=== PATIENT | male | born 1950 | race Two or more races ===

== ENCOUNTER 2017-12-19 10:54 | Outpatient (CLI) | payer OTHER ==
[~2017-12-19 10:54] MED LIST: MOBIC15 MG PO
== END 2017-12-19 12:00 | disposition home or self-care (01) ==
LOC: NUCLEAR 10:54
DX: I87.2 Venous insufficiency (chronic) (peripheral) (principal); M25.461 Effusion, right knee; M25.462 Effusion, left knee; M25.561 Pain in right knee; M25.562 Pain in left knee

== ENCOUNTER 2021-07-23 13:48 | Inpatient (IN) | payer OTHER ==
[~2021-07-23] VITALS: Ht 172.7 cm; Wt 83.9 kg
[~2021-07-23 13:48] MED LIST changes: +LOTREL 5-20 MG1 CAP PO; +TENORMIN50 M1 PO
== END 2021-07-28 12:06 | disposition home or self-care (01) | DRG 378 ==
LOC: ER 13:48 → SEC-K 21:18 → SURG 21:32
PROVIDERS: ADMIT Internal Medicine; ATTEND Internal Medicine
PROC: 30233N1 Transfusion of Nonautologous Red Blood Cells into Peripheral Vein, Percutaneous Approach (ICD-10-PCS; principal; 2021-07-24)
PROC: 0DB78ZX Excision of Stomach, Pylorus, Via Natural or Artificial Opening Endoscopic, Diagnostic (ICD-10-PCS; 2021-07-26)
DX: K92.1 Melena (principal); D62 Acute posthemorrhagic anemia; I10 Essential (primary) hypertension; T39.395A Adverse effect of other nonsteroidal anti-inflammatory drugs [NSAID], initial encounter; K29.00 Acute gastritis without bleeding; K44.9 Diaphragmatic hernia without obstruction or gangrene

== ENCOUNTER 2021-08-02 11:09 | Emergency (ER) | payer OTHER ==
[~2021-08-02] VITALS: Ht 172.7 cm; Wt 81.6 kg
[2021-08-02] MEDS ORDERED: PEPCID AC20 MG (11:35)
[2021-08-02] MEDS ORDERED: AMOX1TAB5 (11:35)
[2021-08-02] MEDS ORDERED: PROTONIX40 MG (11:35)
[2021-08-02] MEDS ORDERED: LEVO-T75 MCG (11:35)
== END 2021-08-02 15:15 | disposition home or self-care (01) ==
LOC: ER 11:09
DX: R60.0 Localized edema (principal); M79.675 Pain in left toe(s)

== ENCOUNTER 2022-08-09 08:00 | Inpatient (IN) | payer OTHER ==
[~2022-08-09] VITALS: Ht 172.7 cm; Wt 83.9 kg
[~2022-08-09 08:00] MED LIST changes: +AMOX1TAB5; +LEVO-T75 MCG PO; +PEPCID AC20 MG; +PROTONIX40 MG
== END 2022-08-17 18:28 | DRG 470 ==
LOC: SURG 08-15 07:00 → O/R 08-15 07:38 → SURG 08-15 08:00
PROVIDERS: ADMIT Orthopaedic Surgery; ATTEND Orthopaedic Surgery
PROC: 0SRB0JZ Replacement of Left Hip Joint with Synthetic Substitute, Open Approach (ICD-10-PCS; principal; 2022-08-15 07:00)
DX: M16.12 Unilateral primary osteoarthritis, left hip (principal); D62 Acute posthemorrhagic anemia; M85.68 Other cyst of bone, other site

== ENCOUNTER 2023-05-15 04:27 | Emergency (ER) | payer OTHER ==
[~2023-05-15] VITALS: Ht 172.7 cm; Wt 81.6 kg
[2023-05-15] MEDS ORDERED: LASIX20 MG PO (04:48)
== END 2023-05-15 07:23 | disposition home or self-care (01) ==
LOC: ER 04:27
DX: J06.9 Acute upper respiratory infection, unspecified (principal); Z20.822 Contact with and (suspected) exposure to COVID-19

== ENCOUNTER 2023-12-23 08:34 | Emergency (ER) | payer OTHER ==
[~2023-12-23] VITALS: Ht 172.7 cm; Wt 85.7 kg
[~2023-12-23 08:34] MED LIST changes: +LASIX20 MG PO
[2023-12-23 09:48] LABS: HEMATOCRIT 35.9 % (39.0-48.0); MEAN CELL VOLUME 85.3 fL (80.0-100.00); MEAN CORPUSCULAR HEMOGLOBIN 28.5 pg (27.00-32.0); MEAN CORPUSCULAR HGB CONC 33.4 g/dl (32.0-36.0); PLATELET COUNT 343 K/uL (150-450); RED BLOOD COUNT 4.21 M/uL (4.00-6.00); RED CELL DISTRIBUTION WIDTH 16.3 % (11.5-14.5)
== END 2023-12-23 12:15 | disposition home or self-care (01) ==
LOC: ER 08:35
PROVIDERS: General Practice
DX: J06.9 Acute upper respiratory infection, unspecified (principal); R05.9 Cough, unspecified; Z20.822 Contact with and (suspected) exposure to COVID-19; I10 Essential (primary) hypertension

== ENCOUNTER 2024-03-31 08:20 | Outpatient (CLI) | payer OTHER | END 2024-03-31 08:26 | disposition home or self-care (01) | LOC: TOM 08:20 | PROVIDERS: ATTEND Internal Medicine Gastroenterology | DX: K56.600 Partial intestinal obstruction, unspecified as to cause (principal) ==

== ENCOUNTER 2024-05-08 13:00 | Outpatient (CLI) | payer OTHER | END 2024-05-08 14:00 | disposition home or self-care (01) | LOC: WOUND MED 13:00 | PROVIDERS: ATTEND Specialist | DX: L97.328 Non-pressure chronic ulcer of left ankle with other specified severity (principal) | CPT/HCPCS: 97602; A4927; A6219; A6223 ==

== ENCOUNTER → 2024-05-15 | Outpatient (CLI) | payer OTHER ==
[~2024-05-15] MED LIST changes: +LEVOXYL88 MCG; +OMEPRAZOLE MAGN20 MG
== END | disposition home or self-care (01) ==
LOC: WOUND MED 05-13 07:00
PROVIDERS: ATTEND Specialist
DX: L97.322 Non-pressure chronic ulcer of left ankle with fat layer exposed (principal)
CPT/HCPCS: 11042; A4927; A6219 ×2; A6223 ×2

== ENCOUNTER → 2024-05-19 | Outpatient (CLI) | payer OTHER | END | disposition home or self-care (01) | LOC: WOUND MED 08:00 | PROVIDERS: ATTEND Specialist | DX: L98.422 Non-pressure chronic ulcer of back with fat layer exposed (principal) | CPT/HCPCS: 97602; A4927; A6219; A6223 ==

== ENCOUNTER → 2024-05-22 | Outpatient (CLI) | payer OTHER | END | disposition home or self-care (01) | LOC: WOUND MED 08:45 | PROVIDERS: ATTEND Specialist | DX: L97.922 Non-pressure chronic ulcer of unspecified part of left lower leg with fat layer exposed (principal) | CPT/HCPCS: 11042; A4927; A6219; A6223 ==

== ENCOUNTER → 2024-05-26 | Outpatient (CLI) | payer OTHER | END | disposition home or self-care (01) | LOC: WOUND MED 12:50 → WOUND CARE 13:00 → EDSTATUS 13:00 | PROVIDERS: ATTEND Specialist | DX: L97.922 Non-pressure chronic ulcer of unspecified part of left lower leg with fat layer exposed (principal) | CPT/HCPCS: 97602; A4927; A6219; A6223 ==

== ENCOUNTER → 2024-05-29 | Outpatient (CLI) | payer OTHER | END | disposition home or self-care (01) | LOC: WOUND CARE 09:00 → EDSTATUS 09:00 → WOUND MED 09:03 | PROVIDERS: ATTEND Specialist | DX: L97.322 Non-pressure chronic ulcer of left ankle with fat layer exposed (principal) | CPT/HCPCS: 11042; A4927; A6219; A6223; A6251 ==

== ENCOUNTER → 2024-06-02 | Outpatient (CLI) | payer OTHER | END | disposition home or self-care (01) | LOC: WOUND MED 13:00 | PROVIDERS: ATTEND Specialist | DX: L97.322 Non-pressure chronic ulcer of left ankle with fat layer exposed (principal) | CPT/HCPCS: 97602; A4927; A6219; A6223; A6251 ==

== ENCOUNTER → 2024-06-05 | Outpatient (CLI) | payer OTHER | END | disposition home or self-care (01) | LOC: WOUND MED 08:30 | PROVIDERS: ATTEND Specialist | DX: L97.822 Non-pressure chronic ulcer of other part of left lower leg with fat layer exposed (principal) | CPT/HCPCS: 11042; A4927; A6219; A6223 ==

== ENCOUNTER 2024-06-09 13:17 | Outpatient (CLI) | payer OTHER ==
[~2024-06-09 13:17] MED LIST changes: -LEVOXYL88 MCG; -OMEPRAZOLE MAGN20 MG
== END 2024-06-09 14:00 | disposition home or self-care (01) ==
LOC: WOUND MED 13:17
PROVIDERS: ATTEND Specialist
DX: L97.322 Non-pressure chronic ulcer of left ankle with fat layer exposed (principal)
CPT/HCPCS: 97602; A4927; A6219; A6223

== ENCOUNTER 2024-06-11 09:15 | Inpatient (IN) | payer OTHER ==
[~2024-06-11] VITALS: Ht 172.7 cm; Wt 85.3 kg
[2024-06-11 12:34] VITALS: BP 133/68
[2024-06-11] MEDS ORDERED: LEVOXYL88 MCG (12:43)
[2024-06-11] MEDS ORDERED: OMEPRAZOLE MAGN20 MG (12:43)
[2024-06-18] MEDS ORDERED: BUPIVACAINE HCL 30 ML VIAL IJ ONE (09:15)
[2024-06-18] MEDS ORDERED: METRONIDAZOLE/SODIUM CHLORIDE 500 MG/100 ML PIGGYBACK IV ONE (09:15)
[2024-06-18] MEDS ORDERED: CEFTRIAXONE SODIUM 2,000 MG VIAL IV ONE (09:15)
[2024-06-18] MEDS ORDERED: MORPHINE SULFATE 4 MG/ML CARTRIDGE IV PRN (11:00)
[2024-06-18] MEDS ORDERED: OxyCODONE HCL 5 MG TABLET (ROXICODONE) PO PRN (11:00)
[2024-06-18] MEDS ORDERED: RINGERS SOLUTION,LACTATED 1,000 ML IV SCH (11:00)
[2024-06-18] MEDS ORDERED: DEXTROSE 50 % IN WATER 0.5 G/ML DISP.SYRIN IV PRN (11:00)
[2024-06-18] MEDS ORDERED: ONDANSETRON HCL 2 MG/ML VIAL IV PRN (11:00)
[2024-06-18] MEDS ORDERED: MORPHINE SULFATE 4 MG/ML VIAL IV ONE ×2 (11:10→11:40)
[2024-06-18 11:54] LABS: HEMATOCRIT 32.3 % (39.0-48.0); HEMOGLOBIN 10.7 g/dL (13-16.00); MEAN CORPUSCULAR HEMOGLOBIN 27.4 pg (27.00-32.0); PLATELET COUNT 309 K/uL (150-450); RED BLOOD COUNT 3.89 M/uL (4.00-6.00); RED CELL DISTRIBUTION WIDTH 18.2 % (11.5-14.5)
[2024-06-18 12:55] VITALS: BP 133/68; O2SAT 95
[2024-06-18] MEDS ORDERED: SIMETHICONE 125 MG CAPSULE PO SCH (13:00)
[2024-06-18] MEDS ORDERED: HYOSCYAMINE SULFATE 0.125 MG TAB.SUBL SL SCH (13:00)
[2024-06-18] MEDS ORDERED: ENALAPRILAT DIHYDRATE 1.25 MG/ML VIAL IV PRN (13:45)
[2024-06-18] MEDS ORDERED: ACETAMINOPHEN 500 MG GEL..CAP PO SCH (14:00)
[2024-06-18] MEDS ORDERED: POLYETHYLENE GLYCOL 3350 17 GM BLIST.PACK PO SCH (17:00)
[2024-06-18] MEDS ORDERED: SOD FERRIC GLUC COMPLX/SUCROSE 62.5 MG in 0.9 % SODIUM CHLORIDE 50 ML IV SCH (17:00)
[2024-06-18] MEDS ORDERED: METOCLOPRAMIDE HCL 5 MG/ML VIAL IV SCH (17:00)
[2024-06-18] MEDS ORDERED: GABAPENTIN 300 MG CAPSULE PO SCH (17:00)
[2024-06-18 19:10] VITALS: BP 155/67; O2SAT 95
[2024-06-18] MEDS ORDERED: FUROsemide 20 MG TABLET PO SCH (21:00)
[2024-06-18] MEDS ORDERED: CELECOXIB 200 MG CAPSULE PO SCH (21:00)
[2024-06-18] MEDS ORDERED: FAMOTIDINE/PF 20 MG/2 ML VIAL IV PUSH SCH (21:00)
[2024-06-19] VITALS: BP 127/60; O2SAT 95
[2024-06-19] MEDS ORDERED: LEVOTHYROXINE SODIUM 88 MCG TABLET PO SCH (06:00)
[2024-06-19 07:05] LABS: HEMATOCRIT 30.4 % (39.0-48.0); HEMOGLOBIN 10.3 g/dL (13-16.00); MEAN CELL VOLUME 81.1 fL (80.0-100.00); MEAN CORPUSCULAR HEMOGLOBIN 27.5 pg (27.00-32.0); MEAN CORPUSCULAR HGB CONC 33.9 g/dl (32.0-36.0); PLATELET COUNT 257 K/uL (150-450); RED BLOOD COUNT 3.75 M/uL (4.00-6.00); RED CELL DISTRIBUTION WIDTH 17.8 % (11.5-14.5)
[2024-06-19 07:52] LABS: ALBUMIN 2.7 gm/dL (3.4-5.0); CALCIUM 8.5 mg/dL (8.5-10.1); CREATININE SERUM 0.8 mg/dL (0.70-1.30); GFR 94.5; PHOSPHOROUS 3.2 mg/dL (2.5-4.9); POTASSIUM 4.32 mEq/L (3.5-5.1)
[2024-06-19 08:00] VITALS: BP 140/65; O2SAT 95
[2024-06-19] MEDS ORDERED: Cyanocobalamin/Mecobalamin 1 TAB.SL SL SCH (09:00)
[2024-06-19] MEDS ORDERED: ATENOLOL 50 MG TABLET PO SCH (09:00)
[2024-06-19] MEDS ORDERED: LACTOBACILLUS ACIDOPHILUS 1 CAP CAP PO SCH (09:00)
[2024-06-19] MEDS ORDERED: PATIENTS OWN MEDICATION (MEDICAMENTO EN PISO) PO SCH (09:00)
[2024-06-19] MEDS ORDERED: ENOXAPARIN SODIUM 40 MG/0.4 ML SYRINGE SUBCUTANEO SCH (17:00)
[2024-06-19 17:01] VITALS: BP 116/64; O2SAT 98
[2024-06-19 23:15] VITALS: BP 114/51; O2SAT 95
[2024-06-20 08:01] LABS: HEMATOCRIT 31.7 % (39.0-48.0); HEMOGLOBIN 10.8 g/dL (13-16.00); MEAN CELL VOLUME 83.5 fL (80.0-100.00); MEAN CORPUSCULAR HEMOGLOBIN 28.3 pg (27.00-32.0); MEAN CORPUSCULAR HGB CONC 33.9 g/dl (32.0-36.0); PLATELET COUNT 225 K/uL (150-450); RED CELL DISTRIBUTION WIDTH 17.8 % (11.5-14.5)
[2024-06-20 08:22] VITALS: BP 132/66; O2SAT 95
[2024-06-20] MEDS ORDERED: ENOXAPARIN SODIUM 40 MG/0.4 ML SYRINGE SUBCUTANEO SCH (09:00)
[2024-06-20 09:07] LABS: CALCIUM 8.5 mg/dL (8.5-10.1); CREATININE SERUM 0.84 mg/dL (0.70-1.30); GFR 89.32; MAGNESIUM 1.8 mg/dL (1.8-2.4); PHOSPHOROUS 2.4 mg/dL (2.5-4.9); POTASSIUM 4.27 mEq/L (3.5-5.1)
[2024-06-20] MEDS ORDERED: POTASSIUM PHOS,M-BASIC-D-BASIC 3 MM/ML VIAL IV NR (09:30)
[2024-06-20] MEDS ORDERED: INTESTINEX680 M1 PO (11:12)
[2024-06-20] MEDS ORDERED: HYOSCYAMINE0.125 M1 SL (11:12)
== END 2024-06-20 16:05 | disposition home or self-care (01) | DRG 331 ==
LOC: O/R 06-18 05:40 → SURG 06-18 05:40 → SURH 06-18 07:00 → SURG 06-18 13:07
PROVIDERS: Internal Medicine Geriatric Medicine; ADMIT Surgery; ATTEND Surgery
PROC: 0DBP4ZZ Excision of Rectum, Percutaneous Endoscopic Approach (ICD-10-PCS; 2024-06-18)
PROC: 07BB4ZZ Excision of Mesenteric Lymphatic, Percutaneous Endoscopic Approach (ICD-10-PCS; 2024-06-18)
PROC: 4A1BXSH Monitoring of Gastrointestinal Vascular Perfusion using Indocyanine Green Dye, External Approach (ICD-10-PCS; 2024-06-18)
PROC: 0DJD8ZZ Inspection of Lower Intestinal Tract, Via Natural or Artificial Opening Endoscopic (ICD-10-PCS; 2024-06-18)
PROC: 0DTN4ZZ Resection of Sigmoid Colon, Percutaneous Endoscopic Approach (ICD-10-PCS; principal; 2024-06-18 07:00)
PROC: 0JDN0ZZ Extraction of Right Lower Leg Subcutaneous Tissue and Fascia, Open Approach (ICD-10-PCS; 2024-06-20)
DX: C18.7 Malignant neoplasm of sigmoid colon (principal); K57.30 Diverticulosis of large intestine without perforation or abscess without bleeding; D64.9 Anemia, unspecified; I83.023 Varicose veins of left lower extremity with ulcer of ankle; R59.0 Localized enlarged lymph nodes

== ENCOUNTER 2024-06-12 09:49 | Outpatient (CLI) | payer OTHER ==
[~2024-06-12 09:49] MED LIST changes: +LEVOXYL88 MCG; +OMEPRAZOLE MAGN20 MG
== END 2024-06-12 10:43 | disposition home or self-care (01) ==
LOC: WOUND MED 09:49
PROVIDERS: ATTEND Specialist
DX: L97.322 Non-pressure chronic ulcer of left ankle with fat layer exposed (principal)
CPT/HCPCS: 11042; A4927; A6220; A6223

== ENCOUNTER 2024-06-16 13:08 | Outpatient (CLI) | payer OTHER | END 2024-06-16 14:00 | disposition home or self-care (01) | LOC: WOUND MED 13:08 | PROVIDERS: ATTEND Specialist | DX: L97.322 Non-pressure chronic ulcer of left ankle with fat layer exposed (principal) | CPT/HCPCS: 97602; A4927; A6199; A6219; A6223 ==

== ENCOUNTER 2024-07-14 11:04 | Inpatient (IN) | payer OTHER ==
[~2024-07-14] VITALS: Ht 172.7 cm; Wt 81.6 kg
[~2024-07-14 11:04] MED LIST changes: +HYOSCYAMINE0.125 M1 SL; +INTESTINEX680 M1 PO
--- NOTE | 2024-07-14 11:52 | NUR ---
PTE REFERIDO POR EL [facility] HUFFMANA DE [facility] CARE PARA SER EVALUADO. SE LE DEMETRI S/V Y SE UBICA EN TRUNG.
[2024-07-14] MEDS ORDERED: 0.9 % SODIUM CHLORIDE 1,000 ML IV SCH ×2 (12:30→19:45)
[2024-07-14 13:05] LABS: HEMATOCRIT 34.7 % (39.0-48.0); HEMOGLOBIN 11.3 g/dL (13-16.00); MEAN CELL VOLUME 83.2 fL (80.0-100.00); MEAN CORPUSCULAR HEMOGLOBIN 27.1 pg (27.00-32.0); MEAN CORPUSCULAR HGB CONC 32.6 g/dl (32.0-36.0); PLATELET COUNT 303 K/uL (150-450); RED BLOOD COUNT 4.16 M/uL (4.00-6.00); RED CELL DISTRIBUTION WIDTH 18.2 % (11.5-14.5)
[2024-07-14 13:08] LABS: PH,URINE 5.5 (5.0-8.0); URINE APPEARANCE Clear; URINE BILIRRUBIN Negative (NEGATIVE); URINE BLOOD Negative; URINE COLOR Yellow; URINE GLUCOSE Negative (NEGATIVE); URINE KETONE Negative (NEGATIVE); URINE LEUKOCYTE Negative; URINE NITRATE Negative; URINE PROTEIN Negative (NEGATIVE); URINE UROBILINOGEN 0.2 E.U./dl
--- NOTE | 2024-07-14 13:10 | NUR ---
PTE EVALUADO POR EL KATHERIN HUFFMAN QUIE ORDENA TRATAMIENTO LA CUAL SE EJECUTA, SE DEMETRI MEDIDAS ASEPTICA CON PROCEDIMINTO Y SE MANTIENE EN ESPERA DE RESULTADO DE LABORATORIO.
[2024-07-14 13:11] LABS: URINE BACTERIA 25.1 uL (0.0-1933); URINE RBC 4.2 uL (0.0-20.8)
[2024-07-14 13:12] LABS: URINE EPITHELIAL CELLS 1.2 uL (0.0-38.8); URINE WBC 0.9 uL (0.0-23.2)
[2024-07-14 13:19] LABS: INR 1.05; PARTIAL THROMBOPLASTIN TIME 30.6 SECONDS (22.0-34.0); PROTHROMBIN TIME 11.4 SECONDS (9.0-11.5)
[2024-07-14 13:28] LABS: CALCIUM 9.5 mg/dL (8.5-10.1); CREATININE SERUM 0.96 mg/dL (0.70-1.30); GFR 76.57; POTASSIUM 4.24 mEq/L (3.5-5.1)
[2024-07-14] MEDS ORDERED: PIPERACILLIN/TAZOBACTAM SODIUM 3.375 GM in DEXTROSE 5 % IN WATER 100 ML IV SCH (19:48)
[2024-07-14] MEDS ORDERED: TRAMADOL HCL 50 MG TABLET PO ONE (20:00)
[2024-07-14] MEDS ORDERED: ACETAMINOPHEN 500 MG GEL..CAP PO PRN (20:00)
[2024-07-15] MEDS ORDERED: LEVOTHYROXINE SODIUM 88 MCG TABLET PO SCH (06:00)
[2024-07-15 07:59] VITALS: BP 130/53; O2SAT 99
[2024-07-15] MEDS ORDERED: AMLODIPINE BESYLATE 5 MG TABLET PO SCH (09:00)
[2024-07-15] MEDS ORDERED: ENOXAPARIN SODIUM 40 MG/0.4 ML SYRINGE SUBCUTANEO SCH (09:00)
[2024-07-15] MEDS ORDERED: ATENOLOL 50 MG TABLET PO SCH (09:00)
[2024-07-15] MEDS ORDERED: FUROsemide 20 MG TABLET PO SCH (09:00)
[2024-07-15] MEDS ORDERED: FAMOTIDINE/PF 20 MG in 0.9 % SODIUM CHLORIDE 8 ML IV PUSH SCH (09:00)
[2024-07-15] MEDS ORDERED: VANCOMYCIN HCL 1,000 MG VIAL IV NR (14:00)
[2024-07-15] MEDS ORDERED: CEFEPIME HCL 2,000 MG VIAL IV SCH (17:00)
[2024-07-15 18:22] VITALS: BP 145/69
[2024-07-15 19:10] LABS: HEMATOCRIT 33.7 % (39.0-48.0); HEMOGLOBIN 11.2 g/dL (13-16.00); MEAN CELL VOLUME 82.7 fL (80.0-100.00); MEAN CORPUSCULAR HEMOGLOBIN 27.5 pg (27.00-32.0); MEAN CORPUSCULAR HGB CONC 33.3 g/dl (32.0-36.0); PLATELET COUNT 293 K/uL (150-450); RED BLOOD COUNT 4.07 M/uL (4.00-6.00); RED CELL DISTRIBUTION WIDTH 18.4 % (11.5-14.5)
[2024-07-15 19:37] LABS: ALBUMIN 3.4 gm/dL (3.4-5.0); BILIRUBIN TOTAL 0.53 mg/dL (0.3-1.2); CREATININE SERUM 1.16 mg/dL (0.70-1.30); GFR 61.54; PHOSPHOROUS 3.2 mg/dL (2.5-4.9); POTASSIUM 4.36 mEq/L (3.5-5.1); TOTAL PROTEIN 7.4 gm/dL (6.4-8.2)
[2024-07-15 19:40] LABS: C-REACTIVE PROTEIN 7.74 MG/DL (0.00-0.29)
[2024-07-15] MEDS ORDERED: VANCOMYCIN HCL 1,000 MG VIAL IV SCH (21:00)
[2024-07-16 00:22] VITALS: BP 104/61; O2SAT 97
[2024-07-16] MEDS ORDERED: SODIUM HYPOCHLORITE 1OZ TOP SCH (09:00)
[2024-07-16 09:40] VITALS: BP 120/74; O2SAT 96
[2024-07-16 18:43] VITALS: BP 142/65
[2024-07-17 02:04] VITALS: BP 109/58; O2SAT 99
[2024-07-17 09:19] VITALS: BP 126/69; O2SAT 98
[2024-07-17 18:14] VITALS: BP 121/59
[2024-07-18 00:33] VITALS: BP 132/63; O2SAT 99
[2024-07-18 05:25] LABS: HEMATOCRIT 30.9 % (39.0-48.0); HEMOGLOBIN 10.3 g/dL (13-16.00); MEAN CELL VOLUME 82.8 fL (80.0-100.00); MEAN CORPUSCULAR HEMOGLOBIN 27.6 pg (27.00-32.0); MEAN CORPUSCULAR HGB CONC 33.3 g/dl (32.0-36.0); PLATELET COUNT 232 K/uL (150-450); RED BLOOD COUNT 3.74 M/uL (4.00-6.00); RED CELL DISTRIBUTION WIDTH 17.6 % (11.5-14.5)
[2024-07-18 05:53] LABS: ALBUMIN 2.9 gm/dL (3.4-5.0); BILIRUBIN TOTAL 0.34 mg/dL (0.3-1.2); C-REACTIVE PROTEIN 5.15 MG/DL (0.00-0.29); CALCIUM 8.9 mg/dL (8.5-10.1); GFR 73.04; GLOBULINA 3.6 G/DL (2.4-3.5); PHOSPHOROUS 3.3 mg/dL (2.5-4.9); POTASSIUM 4.4 mEq/L (3.5-5.1); TOTAL PROTEIN 6.5 gm/dL (6.4-8.2)
[2024-07-18 08:55] VITALS: BP 132/68; O2SAT 100
[2024-07-18 16:50] VITALS: BP 125/68
[2024-07-19 02:53] VITALS: BP 128/73; O2SAT 96
[2024-07-19 08:34] LABS: ALBUMIN 2.9 gm/dL (3.4-5.0); CREATININE SERUM 0.96 mg/dL (0.70-1.30); GFR 76.57; PHOSPHOROUS 2.9 mg/dL (2.5-4.9); POTASSIUM 4.05 mEq/L (3.5-5.1)
[2024-07-19 09:41] VITALS: BP 139/65; O2SAT 97
[2024-07-19 17:53] VITALS: BP 130/82; O2SAT 98
[2024-07-20 02:52] VITALS: BP 134/77; O2SAT 96
[2024-07-20 10:01] VITALS: BP 125/73; O2SAT 96
[2024-07-20 17:04] VITALS: BP 144/69; O2SAT 94
[2024-07-21 02:58] VITALS: BP 93/50; O2SAT 96
[2024-07-21 09:16] VITALS: BP 122/69
[2024-07-21 18:02] VITALS: BP 151/74
[2024-07-22 01:08] VITALS: BP 130/65; O2SAT 98
[2024-07-22 06:15] LABS: HEMATOCRIT 30.1 % (39.0-48.0); HEMOGLOBIN 10.2 g/dL (13-16.00); MEAN CELL VOLUME 82.3 fL (80.0-100.00); MEAN CORPUSCULAR HEMOGLOBIN 27.7 pg (27.00-32.0); MEAN CORPUSCULAR HGB CONC 33.7 g/dl (32.0-36.0); PLATELET COUNT 230 K/uL (150-450); RED BLOOD COUNT 3.66 M/uL (4.00-6.00); RED CELL DISTRIBUTION WIDTH 17.2 % (11.5-14.5)
[2024-07-22 06:34] LABS: ALBUMIN 2.7 gm/dL (3.4-5.0); BILIRUBIN TOTAL 0.28 mg/dL (0.3-1.2); CALCIUM 8.9 mg/dL (8.5-10.1); CREATININE SERUM 0.76 mg/dL (0.70-1.30); GFR 100.26; GLOBULINA 3.5 G/DL (2.4-3.5); PHOSPHOROUS 3.2 mg/dL (2.5-4.9); POTASSIUM 3.79 mEq/L (3.5-5.1); TOTAL PROTEIN 6.2 gm/dL (6.4-8.2)
[2024-07-22 06:35] LABS: C-REACTIVE PROTEIN 2.92 MG/DL (0.00-0.29)
[2024-07-22 08:50] VITALS: BP 118/72
[2024-07-22] MEDS ORDERED: LASIX20 MG PO (12:11)
[2024-07-22] MEDS ORDERED: LOTREL 5-20 MG1 CAP PO (12:12)
[2024-07-22] MEDS ORDERED: LEVOFLOXACIN750 MG PO (12:27)
[2024-07-22] MEDS ORDERED: LOTREL 5-10 MG1 CAP PO (12:32)
[2024-07-22] MEDS ORDERED: LEVO-T75 MCG PO (12:33)
== END 2024-07-22 13:23 | disposition home or self-care (01) | DRG 593 ==
LOC: ER 11:04 → SEC-K 20:38 → MEDJ 07-15 00:39
PROVIDERS: Emergency Medicine; Internal Medicine; Internal Medicine Infectious Disease; ADMIT Internal Medicine; ATTEND Internal Medicine
PROC: B44HZZZ Ultrasonography of Bilateral Lower Extremity Arteries (ICD-10-PCS; principal; 2024-07-14)
PROC: B54DZZZ Ultrasonography of Bilateral Lower Extremity Veins (ICD-10-PCS; 2024-07-14)
DX: L97.329 Non-pressure chronic ulcer of left ankle with unspecified severity (principal); L03.116 Cellulitis of left lower limb; L08.9 Local infection of the skin and subcutaneous tissue, unspecified; B96.5 Pseudomonas (aeruginosa) (mallei) (pseudomallei) as the cause of diseases classified elsewhere; B95.61 Methicillin susceptible Staphylococcus aureus infection as the cause of diseases classified elsewhere; B95.2 Enterococcus as the cause of diseases classified elsewhere; E78.5 Hyperlipidemia, unspecified; E03.9 Hypothyroidism, unspecified; I10 Essential (primary) hypertension; I87.2 Venous insufficiency (chronic) (peripheral)

== ENCOUNTER 2024-08-11 09:13 | Outpatient (CLI) | payer OTHER ==
[~2024-08-11 09:13] MED LIST changes: +LEVOFLOXACIN750 MG PO; +LOTREL 5-10 MG1 CAP PO
== END 2024-08-11 11:00 | disposition home or self-care (01) ==
LOC: WOUND MED 09:13
PROVIDERS: ATTEND Specialist
DX: L97.322 Non-pressure chronic ulcer of left ankle with fat layer exposed (principal)
CPT/HCPCS: 11042; 11045; A4927; A6219; A6223

== ENCOUNTER 2024-08-25 09:55 | Outpatient (CLI) | payer OTHER | END 2024-08-25 10:00 | disposition home or self-care (01) | LOC: WOUND MED 09:55 | PROVIDERS: ATTEND Specialist | DX: L97.922 Non-pressure chronic ulcer of unspecified part of left lower leg with fat layer exposed (principal) | CPT/HCPCS: 11042; A4927; A6222; A6223; A6251 ==

== ENCOUNTER 2024-10-11 08:28 | Emergency (ER) | payer OTHER ==
[~2024-10-11] VITALS: Ht 172.7 cm; Wt 83.9 kg
[2024-10-11] MEDS ORDERED: CAPECITABINE500 MG PO (08:42)
[2024-10-11] MEDS ORDERED: MELOXICAM15 MG PO (08:42)
[2024-10-11 10:17] LABS: CALCIUM 9.8 mg/dL (8.5-10.1); CREATININE SERUM 1.07 mg/dL (0.70-1.30); GFR 67.56; POTASSIUM 4.19 mEq/L (3.5-5.1)
[2024-10-11 10:30] LABS: HEMATOCRIT 33.5 % (39.0-48.0); HEMOGLOBIN 11.5 g/dL (13-16.00); MEAN CORPUSCULAR HEMOGLOBIN 28.7 pg (27.00-32.0); MEAN CORPUSCULAR HGB CONC 34.1 g/dl (32.0-36.0); PLATELET COUNT 239 K/uL (150-450); RED BLOOD COUNT 3.99 M/uL (4.00-6.00); RED CELL DISTRIBUTION WIDTH 17.6 % (11.5-14.5)
== END 2024-10-11 12:18 | disposition home or self-care (01) ==
LOC: ER 08:28
PROVIDERS: General Practice
DX: J06.9 Acute upper respiratory infection, unspecified (principal); R05.8 Other specified cough; Z85.038 Personal history of other malignant neoplasm of large intestine; I10 Essential (primary) hypertension; E03.8 Other specified hypothyroidism; Z20.822 Contact with and (suspected) exposure to COVID-19

== ENCOUNTER 2025-01-22 11:34 | Outpatient (CLI) | payer OTHER ==
[~2025-01-22 11:34] MED LIST changes: +CAPECITABINE500 MG PO; +MELOXICAM15 MG PO
== END 2025-01-22 11:40 | disposition home or self-care (01) ==
LOC: RAD 11:34
PROVIDERS: ATTEND Orthopaedic Surgery
DX: M25.551 Pain in right hip (principal); M25.552 Pain in left hip

== ENCOUNTER 2025-05-09 08:53 | Outpatient (CLI) | payer OTHER | END 2025-05-09 08:54 | disposition home or self-care (01) | LOC: RAD 08:53 | PROVIDERS: ATTEND Orthopaedic Surgery | DX: R07.9 Chest pain, unspecified (principal) ==

== ENCOUNTER 2025-05-12 12:15 | Inpatient (IN) | payer OTHER ==
[~2025-05-12] VITALS: Ht 243.8 cm; Wt 83.9 kg
[2025-05-12] MEDS ORDERED: LASIX20 MG PO (13:03)
[2025-05-12] MEDS ORDERED: TRAMADOL HCL E100 M1 (13:03)
[2025-05-14 11:08] LABS: INR 1.04
[2025-05-19 09:06] LABS: RH POSITIVE
[2025-05-19] MEDS ORDERED: VANCOMYCIN HCL 1,000 MG VIAL IR ONE (13:30)
[2025-05-19] MEDS ORDERED: CEFAZOLIN SODIUM 1,000 MG VIAL IV SCH ×2 (13:30→18:00)
[2025-05-19] MEDS ORDERED: BUPIVACAINE HCL 30 ML VIAL IJ ONE (13:30)
[2025-05-19] MEDS ORDERED: LIDOCAINE HCL 1% 20 ML VIAL IJ ONE (13:30)
[2025-05-19] MEDS ORDERED: MORPHINE SULFATE 4 MG/ML CARTRIDGE IV ONE (13:45)
[2025-05-19] MEDS ORDERED: ONDANSETRON HCL 2 MG/ML VIAL IV PRN (15:00)
[2025-05-19] MEDS ORDERED: OxyCODONE HCL 5 MG TABLET (ROXICODONE) PO PRN (18:00)
[2025-05-19] MEDS ORDERED: MORPHINE SULFATE 4 MG/ML CARTRIDGE IV SCH (18:00)
[2025-05-19] MEDS ORDERED: CEFAZOLIN SODIUM 1,000 MG VIAL ONE (18:01)
[2025-05-19] MEDS ORDERED: MORPHINE SULFATE 4 MG/ML VIAL IV ONE (18:20)
[2025-05-19 19:15] VITALS: BP 117/68; O2SAT 98
[2025-05-19] MEDS ORDERED: GABAPENTIN 100 MG CAPSULE PO SCH (21:00)
[2025-05-19] MEDS ORDERED: ORPHENADRINE CITRATE 100 MG TABLET PO SCH (21:00)
[2025-05-20 01:34] VITALS: BP 112/63; O2SAT 98
[2025-05-20] MEDS ORDERED: LEVOTHYROXINE SODIUM 88 MCG TABLET PO SCH (06:00)
[2025-05-20 06:48] LABS: BASO % 0.3 % (0.1-1.2); EOS # 0.07 (0.04-0.54); EOS % 0.6 % (0.7-7.0); LYMPH # 0.98 (1.18-3.74); LYMPH % 8.9 % (19.3-53.1); MEAN PLATELET VOLUME 9.80 fl (9.4-12.4); MONO # 0.78 (0.24-0.82); MONO % 7.1 % (4.7-12.5); NEUT # 9.10 (1.56-6.13); NEUT % 82.6 % (34.0-71.1); RED CELL DISTRIBUTION WIDTH 18.2 % (11.6-14.4)
[2025-05-20 08:25] VITALS: BP 121/63; O2SAT 95
[2025-05-20] MEDS ORDERED: ATENOLOL 50 MG TABLET PO SCH (09:00)
[2025-05-20] MEDS ORDERED: RIVAROXABAN 10 MG TAB PO SCH (09:00)
[2025-05-20] MEDS ORDERED: LOTREL 5 MG/10 MG PO SCH (09:00)
[2025-05-20] MEDS ORDERED: Cyanocobalamin/Mecobalamin 1 TAB.SL SL NR (12:00)
[2025-05-20] MEDS ORDERED: SOD FERRIC GLUC COMPLX/SUCROSE 62.5 MG in 0.9 % SODIUM CHLORIDE 50 ML IV SCH (12:00)
[2025-05-20 16:55] VITALS: BP 112/60; O2SAT 96
[2025-05-21 01:46] VITALS: BP 101/62; O2SAT 96
[2025-05-21 08:00] VITALS: BP 126/76; O2SAT 97
[2025-05-21] MEDS ORDERED: Cyanocobalamin/Mecobalamin 1 TAB.SL SL SCH (09:00)
[2025-05-21 11:57] LABS: BASO % 0.2 % (0.1-1.2); EOS # 0.20 (0.04-0.54); EOS % 1.6 % (0.7-7.0); LYMPH # 1.39 (1.18-3.74); LYMPH % 11.0 % (19.3-53.1); MEAN PLATELET VOLUME 9.70 fl (9.4-12.4); MONO # 1.24 (0.24-0.82); MONO % 9.8 % (4.7-12.5); NEUT # 9.65 (1.56-6.13); NEUT % 76.8 % (34.0-71.1); RED CELL DISTRIBUTION WIDTH 17.3 % (11.6-14.4)
[2025-05-21] MEDS ORDERED: NORFLEX100MG PO (12:29)
[2025-05-21] MEDS ORDERED: XARELTO10 MG PO (12:29)
[2025-05-21] MEDS ORDERED: GABAPENTIN100 MG PO (12:29)
[2025-05-21] MEDS ORDERED: PERCOCET 5-3251 EACH PO (12:30)
[2025-05-21 13:13] LABS: COVID-19 AG NEGATIVE (NEGATIVE)
== END 2025-05-21 15:23 | disposition home or self-care (01) | DRG 467 ==
LOC: O/R 05-19 09:00 → SURH 05-19 09:00
PROVIDERS: ADMIT Orthopaedic Surgery; ATTEND Orthopaedic Surgery
PROC: 0SPB0JZ Removal of Synthetic Substitute from Left Hip Joint, Open Approach (ICD-10-PCS; 2025-05-19)
PROC: 0SRB0JZ Replacement of Left Hip Joint with Synthetic Substitute, Open Approach (ICD-10-PCS; principal; 2025-05-19 12:30)
PROC: 30233N1 Transfusion of Nonautologous Red Blood Cells into Peripheral Vein, Percutaneous Approach (ICD-10-PCS; 2025-05-20)
DX: T84.89XA Other specified complication of internal orthopedic prosthetic devices, implants and grafts, initial encounter (principal); D62 Acute posthemorrhagic anemia; M24.452 Recurrent dislocation, left hip; I10 Essential (primary) hypertension; E03.9 Hypothyroidism, unspecified; E78.5 Hyperlipidemia, unspecified; Z88.6 Allergy status to analgesic agent; Y65.8 Other specified misadventures during surgical and medical care